=== PATIENT | male | born 1985 | race Caucasian/White ===

== ENCOUNTER 2016-08-27 21:10 | Emergency (ER) | payer MEDICAID, OTHER ==
--- NOTE | 2016-08-27 22:54 | ERNOTE ---
<PascualTroy hirsch - Last Filed: 08/28/16 07:51> Psychological HPI - General Chief Complaint: Psychiatric Problem Source: Reports: patient Exam Limitations: Reports: clinical condition - Immun/Allergies/Home Medications Allergies/Adverse Reactions: Allergies No Known Allergies Allergy (Verified 06/13/15 15:56) Home Medications: HOME MEDICATIONS Prazosin HCl [Minipress] 5 mg PO HS 12/28/14 [Last Taken Unknown] QUEtiapine FUMARATE [Seroquel] 25 mg PO PRN PRN 12/28/14 [Last Taken Unknown] QUEtiapine FUMARATE [Seroquel] 200 mg PO HS 12/28/14 [Last Taken Unknown] rOPINIRole HCL [Requip] 1 mg PO HS 12/28/14 [Last Taken Unknown] Sulfamethoxazole/Trimethoprim [Bactrim Ds] 1 tab PO BID #28 tab 06/13/15 [Last Taken Unknown] - History of Present Illness Narrative: Pt brought in by law enforcement with court committal for psychiatric issues. court committal states that the patient has not been taking his medications and is getting increasingly delusional and displaying erratic behavior. patient states that his mom is worried that he is too restorationism. His mom did use hyper religiosity as a reason for committal. Time Seen by Provider: 08/27/16 22:44 Arrived by: Reports: police Onset/duration: Reports: gradual onset Intent: Reports: other Situational Problems: Reports: parents Associated Symptoms: Reports: hallucinating - auditory Review of Systems - Review of Systems Constitutional: Absent: recent illness EYE: Present: no symptoms reported ENT: Present: no symptoms reported Respiratory: Present: no symptoms reported Cardiology: Present: no symptoms reported Psych: Present: See HPI - Patient's Past Medical History Patient History - Medical: No pertinent hx Patient History - Cardiac/Respiratory: No pertinent hx Patient History - Cancer: No Hx of Cancer Patient History - Surgical Procedures: No surgical history Patient History - Other: None - Social History Living Situations: home Psych History: Hx of Psychiatric Tx - Immunizations Immunizations Up to Date: Yes Physical Exam - Physical Exam General Appearance: Present: wd/wn, alert, no apparent distress, other Eye Exam: Normal inspection: bilateral Ears, Nose, Throat: Present: normal ENT inspection Neck: Present: normal inspection, nontender Respiratory: Present: no respiratory distress, normal breath sounds, lungs clear Cardiovascular/Chest: Present: regular rate, rhythm, no murmur Gastrointestinal/Abdominal: Present: normal bowel sounds Rectal Exam: Present: nontender Back Exam: Present: normal inspection, normal range of motion Neurological Exam: Present: alert, oriented, normal mood/affect, other - dystonic movements Skin Exam: Present: normal color, warm/dry ED Progress - Results and Orders Patient's Lab Results:: I have reviewed the patient's lab results. Results and Orders: Laboratory Tests 08/27/16 08/27/16 08/28/16 23:11 23:11 01:37 WBC 9.9 Hgb 15.9 Hct 46.8 Plt Count 254 Sodium 139 Potassium 4.6 Chloride 100 Carbon Dioxide 32.5 Anion Gap 11.1 BUN 21 Creatinine 0.98 Random Glucose 90 Calcium 9.6 Total Bilirubin 0.6 AST 27 ALT 41 Alkaline Phosphatase 83 Total Protein 7.9 Albumin 4.4 TSH 8.060 H Urine Color Yellow Urine Appearance Slightly cloudy Urine pH 6.0 Ur Specific [place] >=1.030 Urine Protein Negative Urine Glucose (UA) Negative Urine Ketones Negative Urine Blood Negative Urine Nitrate Negative Urine Bilirubin Negative Urine Urobilinogen Normal Ur Leukocyte Esterase Negative Urine RBC 0-5 Urine WBC 0-5 Ur Epithelial Cells 10-25 H Amorphous Sediment Many - 3+ H Urine Bacteria None seen Urine Mucus Few - 1+ H Urine Culture Comments No culture indicated Salicylates Less than 2.8 L Urine Opiates Screen Acetaminophen Less than 0.2 L Barbiturate Screen Ur Phencyclidine Scrn Urine Amphetamine U Benzodiazepines Scrn Urine Cocaine Screen Urine Marijuana (THC) Ethyl Alcohol Less than 3.0 08/28/16 01:37 WBC Hgb Hct Plt Count Sodium Potassium Chloride Carbon Dioxide Anion Gap BUN Creatinine Random Glucose Calcium Total Bilirubin AST ALT Alkaline Phosphatase Total Protein Albumin TSH Urine Color Urine Appearance Urine pH Ur Specific [place] Urine Protein Urine Glucose (UA) Urine Ketones Urine Blood Urine Nitrate Urine Bilirubin Urine Urobilinogen Ur Leukocyte Esterase Urine RBC Urine WBC Ur Epithelial Cells Amorphous Sediment Urine Bacteria Urine Mucus Urine Culture Comments Salicylates Urine Opiates Screen Negative Acetaminophen Barbiturate Screen Negative Ur Phencyclidine Scrn Negative Urine Amphetamine Positive H U Benzodiazepines Scrn Negative Urine Cocaine Screen Negative Urine Marijuana (THC) Negative Ethyl Alcohol - Vital Signs Patient's Vital Signs:: I have reviewed the patient's vital signs. Vital Signs: Vital Signs 08/27/16 22:27 Temperature 36.6 C Pulse Rate 90 Respiratory 18 Rate Blood Pressure 127/70 O2 Sat by Pulse 100 Oximetry - Progress/Reassessment Chief Complaint: Psychiatric Problem - Transfer of Care Physician Sign Out: Troy Maldonado Receiving Physician: Janak Sanchez - awaiting placement Expected Disposition: Transfer Departure Clinical Impression: Auditory hallucination Schizophrenia Qualifiers: Schizophrenia type: unspecified Qualified Code(s): F20.9 - Schizophrenia, unspecified - Departure Disposition: Transferred to other hospital Condition: Fair Instructions: Schizophrenia <Janak Sanchez - Last Filed: 08/28/16 12:49> Psychological HPI - Date Date of Service: 08/28/16 ED Progress - Results and Orders Patient's Lab Results:: I have reviewed the patient's lab results. - Vital Signs Vital Signs: Vital Signs 08/28/16 02:10 Temperature 35.0 C L Pulse Rate 62 Respiratory 14 Rate Blood Pressure 127/68 O2 Sat by Pulse 100 Oximetry - Transfer of Care Expected Disposition: Transfer - pt levon commited with his of schizophrenia and not taking meds, reporting hallucinations and restorationism delusions . Labs positive for amphetamines and chronically elevated tsh. Still awaiting transfer. Was court committed to Selene Das in 2013. Plan - Plan Plan: WE HAVE ARRANGED FOR PT. TO BE TRANSFERRED TO [facility] IN [place] WHERE HE HAS BEEN ACCEPTED BY DR. RODRIGUES.
--- OUTSIDE RECORDS SUMMARY | 2016-08-27 22:58 | XMS REPORT | Continuity of Care Document ---
:1985 Author Organization [facility] ([facility]) Address [address] [place] [address] Phone [phone] Care Team Providers Name Role Phone Provider, No-Primary Care Primary Care Provider Unavailable Source Comments This disclosure is being made pursuant to the Care Everywhere program, applicable federal and state laws, and may not contain all informaitonavailable regarding this patient.[facility] ([facility]) Active Allergies and Adverse Reactions Not on File Current Medications Not on file Active Problems Not on file Social History Tobacco Use Types Packs/Day Years Used Date Never Assessed Plan of Care Health Maintenance Due Date Last Done Comments Hepatitis B Vaccine (1 of 3 - Primary Series) 1985 Tdap Vaccine 08/22/1994 Lipid Disorder Screening 08/22/2001 MMR Vaccine 08/22/2001 Td Vaccine 08/22/2001 Varicella Vaccine (1 of 2 - Adult - No Evidence of 08/22/2001 Immunity) Influenza Vaccine: Seasonal (#1) 11/19/2015 Results from Last 3 Months Not on file
[2016-08-27 23:24] LABS: Hematocrit 46.8 % (42.0-52.0); Hemoglobin 15.9 gm/dL (13.5-18.0); Mean Cell Volume 91.8 fl (78-100); Mean Corpuscular Hemoglobin 31.2 pg (27-31); Mean Platelet Volume 8.8 fl (6.0-9.5); Neutrophil # 7.1 K/mm3 (1.3-6.0); Neutrophil % 71.5 % (42-75.0); Platelet Count 254 K/mm3 (150-450); Red Cell Distribution Width 12.6 % (11.5-14.0); White Blood Count 9.9 K/mm3 (4.0-10.5)
[2016-08-27 23:55] LABS: ALT 41 U/L (19-67); AST 27 U/L (0-48); Albumin * 4.4 gm/dl (3.4-5.0); Alkaline Phosphatase * 83 U/L (50-170); Anion Gap 11.1 mmol/L (6.8-13.8); BUN/Creatinine Ratio 21.4 (9.0-21.6); Bilirubin, Total 0.6 mg/dL (0.0-1.1); Blood Urea Nitrogen 21 mg/dL (6-23); Calcium * 9.6 mg/dL (7.9-10.9); Carbon Dioxide 32.5 mmol/L (24-32.6); Chloride 100 mmol/L (97-106); Glucose * 90 mg/dL (70-110); Potassium 4.6 mmol/L (3.4-4.6); Salicylate Less than 2.8 mg/dL (2.8-20.0); Sodium 139 mmol/L (132-142); Total Protein 7.9 gm/dL (6.2-8.2)
[2016-08-28 01:47] LABS: Urine Bilirubin Negative (NEGATIVE); Urine Blood Negative /ul (NEGATIVE); Urine Ketone Negative (NEGATIVE); Urine Nitrite Negative (NEGATIVE); Urine Protein Negative (NEGATIVE); Urine Specific Gravity >=1.030 SP.GR. (1.005-1.030); Urine Urobilinogen Normal (NORMAL)
[2016-08-28 01:51] LABS: Urine Amorphous Sediment Many - 3+ (NONE-FEW); Urine Appearance Slightly Cloudy; Urine Bacteria None Seen; Urine Color Yellow; Urine Mucus Few - 1+; Urine RBC 0-5 /hpf (0-5); Urine WBC 0-5 /hpf (0-5)
[2016-08-28 02:03] LABS: Cocaine Ur Negative (NEGATIVE); Urine Barbiturate Negative (NEGATIVE); Urine Benzodiazepines Negative (NEGATIVE); Urine Opiates Negative (NEGATIVE); Urine PCP Negative (NEGATIVE); Urine THC Negative (NEGATIVE)
[2016-08-28 15:30] VITALS: BP 130/84
== END 2016-08-28 15:18 | disposition short-term general hospital (02) ==
LOC: ER 21:10
DX: R44.0 Auditory hallucinations (principal); F20.9 Schizophrenia, unspecified
CPT/HCPCS: 36415; 80053; 80307; 81001; 84443; 85025; 99284; G0480; G0481

== ENCOUNTER 2016-12-01 14:36 | Emergency (ER) | payer OTHER ==
[2016-12-01] MEDS ORDERED: LORazepam 1 MG TABLET PO ONE (16:13)
[2016-12-01] MEDS ORDERED: LORazepam 1 MG TABLET ONE (16:21)
--- NOTE | 2016-12-01 16:26 | ERNOTE ---
Psychological HPI - General Chief Complaint: Psychiatric Problem Source: Reports: patient Exam Limitations: Reports: no limitations - Immun/Allergies/Home Medications Allergies/Adverse Reactions: Allergies No Known Allergies Allergy (Verified 12/01/16 14:46) Home Medications: HOME MEDICATIONS Prazosin HCl [Minipress] 5 mg PO HS 12/28/14 [Last Taken Unknown] QUEtiapine FUMARATE [Seroquel] 300 mg PO HS 12/28/14 [Last Taken Unknown] rOPINIRole HCL [Requip] 3 mg PO HS 12/28/14 [Last Taken Unknown] Benztropine Mesylate [Cogentin] 1 mg PO DAILY 12/01/16 [Last Taken Unknown] OLANZapine [Olanzapine] 20 mg PO DAILY 12/01/16 [Last Taken Unknown] - History of Present Illness Narrative: Patient states that he feels like bugs are crawling up underneath the skin. He admits to having schizophrenia however he has been taking his injections of an Invega with Danielle Sanchez on a regular basis. Time Seen by Provider: 12/01/16 15:58 Onset/duration: Reports: constant Prior Treament: Reports: similar symptoms before Review of Systems - Review of Systems Constitutional: Present: See HPI EYE: Present: no symptoms reported ENT: Present: no symptoms reported Respiratory: Present: no symptoms reported Cardiology: Present: no symptoms reported Gastrointestinal/Abdominal: Present: no symptoms reported Genitourinary: Present: no symptoms reported Musculoskeletal: Present: no symptoms reported Skin: Present: no symptoms reported Neurological: Present: no symptoms reported Endocrine: Present: no symptoms reported Hematologic/Lymphatic: Present: no symptoms reported Psych: Present: See HPI - Patient's Past Medical History Patient History - Medical: Other - Schizophrenia, Ataxia Patient History - Cardiac/Respiratory: No pertinent hx Patient History - Cancer: No Hx of Cancer Patient History - Surgical Procedures: No surgical history Patient History - Other: None - Social History Living Situations: home Psych History: Hx of Anxiety, Hx of Depression, Hx of Psychiatric Tx Smoking Status: Current every day smoker Alcohol Use: none Drug Use: none - Immunizations Immunizations Up to Date: No Hx Pneumococcal Vaccination: No History of Influenza Vaccine: No Physical Exam - Physical Exam General Appearance: Present: wd/wn, alert, no apparent distress Head Exam: Present: normal inspection, no evidence of injury Eye Exam: Normal inspection: bilateral, PERRL: bilateral Ears, Nose, Throat: Present: normal ENT inspection, H, normal pharynx Neck: Present: normal inspection, nontender Respiratory: Present: no respiratory distress, normal breath sounds, no accessory muscle use, chest nontender, lungs clear Cardiovascular/Chest: Present: regular rate, rhythm, no murmur, normal peripheral pulses Gastrointestinal/Abdominal: Present: normal bowel sounds, nontender, nondistended, soft, no organomegaly Rectal Exam: Present: deferred Back Exam: Present: normal inspection, normal range of motion Extremity Exam: Present: normal inspection, non-tender, no edema, normal range of motion Neurological Exam: Present: alert, oriented, other - flights of ideas Skin Exam: Present: normal color, warm/dry Lymphatic Exam: Present: no adenopathy ED Progress - Vital Signs Patient's Vital Signs:: I have reviewed the patient's vital signs. Vital Signs: Vital Signs 12/01/16 14:38 Temperature 36.6 C Pulse Rate 95 Respiratory 16 Rate Blood Pressure 143/62 O2 Sat by Pulse 97 Oximetry - Progress/Reassessment Chief Complaint: Psychiatric Problem Plan - Plan Plan: I discussed the case with Danielle Sanchez's office and it was recommended that we give Nate 1 mg of Ativan by mouth and 2 mg of Risperdal by mouth and he will call the office tomorrow for further medication adjustment. Departure Clinical Impression: Schizophrenia Qualifiers: Schizophrenia type: undifferentiated schizophrenia Qualified Code(s): F20.3 - Undifferentiated schizophrenia - Departure Disposition: Home self-care Condition: Good Instructions: Schizophrenia
[2016-12-01 16:29] VITALS: BP 138/64
[2016-12-01] MEDS ORDERED: risperiDONE 1 MG TABLET PO ONE (16:30)
== END 2016-12-01 16:27 | disposition home or self-care (01) ==
LOC: ER 14:36
DX: F20.3 Undifferentiated schizophrenia (principal); F17.200 Nicotine dependence, unspecified, uncomplicated

== ENCOUNTER 2016-12-04 05:50 | Emergency (ER) | payer OTHER ==
--- NOTE | 2016-12-04 06:19 | ERNOTE ---
Psychological HPI - General Chief Complaint: Psychiatric Problem Source: Reports: patient Exam Limitations: Reports: no limitations - Immun/Allergies/Home Medications Allergies/Adverse Reactions: Allergies No Known Allergies Allergy (Verified 12/01/16 14:46) Home Medications: HOME MEDICATIONS Prazosin HCl [Minipress] 5 mg PO HS 12/28/14 [Last Taken Unknown] QUEtiapine FUMARATE [Seroquel] 300 mg PO HS 12/28/14 [Last Taken Unknown] rOPINIRole HCL [Requip] 3 mg PO HS 12/28/14 [Last Taken Unknown] Benztropine Mesylate [Cogentin] 1 mg PO DAILY 12/01/16 [Last Taken Unknown] OLANZapine [Olanzapine] 20 mg PO DAILY 12/01/16 [Last Taken Unknown] - History of Present Illness Narrative: Pt acknowledges having auditory hallucinations and those have been consistent. He states that at this time he feels "spiders under my skin". He was in this ED 3 days ago with the same complaint. He states that the medicine he was given put him to sleep but didn't help the feeling go away. He is able to sleep through this feeling but it remains when he awakens. Time Seen by Provider: 12/04/16 06:10 Onset/duration: Reports: gradual onset Associated Symptoms: Reports: frustrated Prior Treament: Reports: recently seen, treated by physician Review of Systems - Review of Systems Constitutional: Absent: recent illness EYE: Absent: vision changes ENT: Present: no symptoms reported Respiratory: Present: no symptoms reported Cardiology: Present: no symptoms reported Gastrointestinal/Abdominal: Present: no symptoms reported Genitourinary: Present: no symptoms reported Musculoskeletal: Present: no symptoms reported Skin: Present: See HPI. Absent: rash, change in color Neurological: Absent: headache, dizziness/light-headedness Endocrine: Present: no symptoms reported Hematologic/Lymphatic: Present: no symptoms reported Psych: Present: See HPI - Patient's Past Medical History Patient History - Medical: Anxiety, Depression, Other Patient History - Cardiac/Respiratory: No pertinent hx Patient History - Cancer: No Hx of Cancer Patient History - Surgical Procedures: No surgical history Patient History - Other: None - Social History Living Situations: alone Psych History: Hx of Anxiety, Hx of Depression, Hx of Psychiatric Tx Smoking Status: Current every day smoker Have you smoked in the past 12 months: Yes Do you dip or chew tobacco: No Alcohol Use: none Drug Use: none - Immunizations Immunizations Up to Date: No - unsure Hx Pneumococcal Vaccination: No History of Influenza Vaccine: No Physical Exam - Physical Exam General Appearance: Present: wd/wn, alert, no apparent distress Head Exam: Present: normal inspection, no evidence of injury Eye Exam: Normal inspection: bilateral, PERRL: bilateral Neck: Present: normal inspection, nontender Respiratory: Present: no respiratory distress, no accessory muscle use Extremity Exam: Present: normal inspection, non-tender, normal range of motion Neurological Exam: Present: alert, oriented Skin Exam: Present: normal color, warm/dry. Absent: skin rash ED Progress - Vital Signs Vital Signs: Vital Signs 12/04/16 05:56 Temperature 36.8 C Pulse Rate 98 Respiratory 18 Rate Blood Pressure 130/90 O2 Sat by Pulse 98 Oximetry - Progress/Reassessment Chief Complaint: Psychiatric Problem Departure Clinical Impression: Tactile hallucination - Departure Disposition: Home Follow Up Needed Condition: Good Additional Instructions: See Danielle Sanchez for further medication adjustments. Referrals: Danielle Parker ARNP [Primary Care Provider] -
[2016-12-04] MEDS ORDERED: diphenhydrAMINE HCL 50 MG/ML VIAL IV ONE (06:25)
[2016-12-04] MEDS ORDERED: diphenhydrAMINE HCL 50 MG/ML VIAL ONE (06:54)
[2016-12-04 07:45] VITALS: BP 121/73
== END 2016-12-04 07:47 | disposition home or self-care (01) ==
LOC: ER 05:50
DX: R44.2 Other hallucinations (principal); F17.200 Nicotine dependence, unspecified, uncomplicated

== ENCOUNTER 2016-12-05 17:51 | Emergency (ER) | payer OTHER ==
[2016-12-05 18:00] VITALS: BP 129/78
--- NOTE | 2016-12-05 19:18 | ERNOTE ---
Psychological HPI - Date Date of Service: 12/05/16 - General Chief Complaint: Psychiatric Problem Source: Reports: patient, family - Immun/Allergies/Home Medications Allergies/Adverse Reactions: Allergies No Known Allergies Allergy (Verified 12/05/16 18:00) Home Medications: HOME MEDICATIONS Prazosin HCl [Minipress] 5 mg PO HS 12/28/14 [Last Taken Unknown] QUEtiapine FUMARATE [Seroquel] 300 mg PO HS 12/28/14 [Last Taken Unknown] rOPINIRole HCL [Requip] 3 mg PO HS 12/28/14 [Last Taken Unknown] Benztropine Mesylate [Cogentin] 1 mg PO DAILY 12/01/16 [Last Taken Unknown] OLANZapine [Olanzapine] 20 mg PO DAILY 12/01/16 [Last Taken Unknown] QUEtiapine FUMARATE [Seroquel Xr] 300 mg PO HS #7 tab.er.[id number] 12/05/16 [Last Taken Unknown] - History of Present Illness Narrative: This is a 31-year-old male with a known history of schizophrenia who comes to the emergency department requesting Seroquel. The patient says that over the last week he is started to see things including spiders which are "climbing through his retina". He specifically gets upset if I suggest that the spiders on his skin saying no they are definitely in his eyeball. The patient saw his primary care doctor yesterday and got a Depo injection of antipsychotic. He was also put on Flagyl. We are not certain why. The patient's mother came with her him today. She says that he is not able to function at work and would need a day off for until she is seen by the psychiatrist. She says she is going to be getting in contact with his primary doctor on Thursday to get him a continuation of the Seroquel. The patient has been on Seroquel in the past. This is usually corresponded to times when he has had a significant decompensation. He was not on Seroquel as of a week ago. I have discussed with them the possible side effects including EPS patient denies suicidal or homicidal ideation and admits freely to the hallucinations visual and auditory. Time Seen by Provider: 12/05/16 19:09 Review of Systems - Review of Systems Constitutional: Present: no symptoms reported EYE: Present: no symptoms reported ENT: Present: no symptoms reported Respiratory: Present: no symptoms reported Cardiology: Present: no symptoms reported Gastrointestinal/Abdominal: Present: no symptoms reported Genitourinary: Present: no symptoms reported Musculoskeletal: Present: no symptoms reported Skin: Present: no symptoms reported Neurological: Present: no symptoms reported Endocrine: Present: no symptoms reported Hematologic/Lymphatic: Present: no symptoms reported Psych: Present: See HPI, anxiety, emotional problems All Other Systems: All systems neg except as marked - Patient's Past Medical History Patient History - Medical: Anxiety, Depression, Other Patient History - Cardiac/Respiratory: No pertinent hx Patient History - Cancer: No Hx of Cancer Patient History - Surgical Procedures: No surgical history Patient History - Other: None - Social History Living Situations: home Psych History: Hx of Anxiety, Hx of Depression, Hx of Psychiatric Tx Alcohol Use: none Drug Use: none - Immunizations Immunizations Up to Date: No - unsure Hx Pneumococcal Vaccination: No History of Influenza Vaccine: No Physical Exam - Physical Exam General Appearance: Present: wd/wn, alert, no apparent distress, other - patient makes no eye contact. When he speaks he is very focused on the spiders that he sees. His speech is not goal-directed. Somewhat rambling. [place] is normal. Head Exam: Present: normal inspection, no evidence of injury Eye Exam: Normal inspection: bilateral, PERRL: bilateral, EOMI: bilateral Ears, Nose, Throat: Present: normal ENT inspection, normal pharynx Neck: Present: normal inspection, nontender Respiratory: Present: no respiratory distress, normal breath sounds, no accessory muscle use, lungs clear Cardiovascular/Chest: Present: regular rate, rhythm, no murmur, normal peripheral pulses Gastrointestinal/Abdominal: Present: normal bowel sounds, nontender, nondistended, soft Back Exam: Present: normal inspection, normal range of motion, no CVA tenderness , no vertebral tenderness Extremity Exam: Present: normal inspection Neurological Exam: Present: alert, oriented, no motor/sensory deficits, other - patient has a bizarre affect. Disturbed thought process. Consistent with schizophrenia. Denies suicidal or homicidal ideation. ED Progress - Vital Signs Patient's Vital Signs:: I have reviewed the patient's vital signs. Vital Signs: Vital Signs 12/05/16 12/05/16 17:52 17:57 Temperature 36.7 C 36.4 C L Pulse Rate 96 Respiratory 12 Rate Blood Pressure 110/81 129/78 O2 Sat by Pulse 98 Oximetry - Progress/Reassessment Chief Complaint: Psychiatric Problem Plan - Plan Plan: I'm going to proceed to the patient's mother's request for Seroquel X are 300 mg at bedtime. I am going to give him a dose here and write him a prescription for 7 days worth. She understands that she needs to get him in to see his doctor to get this continued. If he develops extrapyramidal side effects which have discussed with her she will return to the ER. She is aware that the Depo injection may take a few more days to kick in. I agree with her that this patient needs medication as he appears to be in true psychiatric distress. Departure Clinical Impression: Schizophrenia - Departure Disposition: Home self-care Condition: Stable Instructions: Schizophrenia Additional Instructions: As we discussed, her long-term psychiatric management needs to be 3 her psychiatrist and family doctor. He received a Depo injection of an antipsychotic yesterday. This may take several more days to kick in. I agree that getting some Seroquel especially at nighttime would be helpful for you. I have given a 7 day's worth of this medicine. Take it only at night. Cardiac family doctor and set up a follow-up appointment [facility] psychiatrist and set up follow-up appointment He must return to the emergency department immediately if he develops abnormal movements of her mouth, you become suicidal or homicidal, or if he develop any new worrisome symptoms. Continue taking all of her previous medicines as prescribed. Referrals: Kanwal Parker FNP [Primary Care Provider] - Prescriptions: QUEtiapine FUMARATE [Seroquel Xr] 300 mg PO HS #7 tab.er.24h
[2016-12-05] MEDS ORDERED: QUEtiapine FUMARATE 100 MG TABLET PO SCH (19:30)
== END 2016-12-05 19:48 | disposition home or self-care (01) ==
LOC: ER 17:51
DX: F20.9 Schizophrenia, unspecified (principal); F41.8 Other specified anxiety disorders

== ENCOUNTER 2017-01-10 21:03 | Emergency (ER) | payer OTHER ==
[2017-01-10 21:21] VITALS: BP 139/83
--- NOTE | 2017-01-10 22:06 | ERNOTE ---
ENT HPI Date of Service: 01/10/17 Presenting Symptoms: other - feels like insects are crawling in his eyes Time Seen by Provider: 01/10/17 21:23 Source: patient - Immun/Allergies/Home Medications Immunizations: IMMUNIZATION HX Immunizations Up to Date Yes History of Influenza Vaccine No Hx Pneumococcal Vaccination No Allergies/Adverse Reactions: Allergies Allergy/AdvReac Type Severity Reaction Status Date / Time No Known Allergies Allergy Verified 12/05/16 18:00 Home Medications: HOME MEDICATIONS Prazosin HCl [Minipress] 5 mg PO HS 12/28/14 [Last Taken Unknown] QUEtiapine FUMARATE [Seroquel] 300 mg PO HS 12/28/14 [Last Taken Unknown] rOPINIRole HCL [Requip] 3 mg PO HS 12/28/14 [Last Taken Unknown] Benztropine Mesylate [Cogentin] 1 mg PO DAILY 12/01/16 [Last Taken Unknown] OLANZapine [Olanzapine] 20 mg PO DAILY 12/01/16 [Last Taken Unknown] QUEtiapine FUMARATE [Seroquel Xr] 300 mg PO HS #7 tab.er.24h 12/05/16 [Last Taken Unknown] - History of Present Illness Narrative: 31 year old that has been feeling like there were insects crawling inside his body for one week. Tonight he would like his eyes check because the thinks that the insects are in his eyes. No complaints of eye pain or injury. Denies any pain. Admits to smoking cannabis last week. PMH: schizophrenia, hallucinations, insect bites. Date (Duration): 01/10/17 Time (Timing): 21:49 Severity: Present: mild ENT Location: Present: eye (L) Modifying Factors - Improves: Reports: nothing Modifying Factors - Worsens: Reports: nothing Review of Systems - Review of Systems Constitutional: Present: no symptoms reported EYE: Present: see HPI ENT: Present: no symptoms reported Respiratory: Present: no symptoms reported Cardiology: Present: no symptoms reported Gastrointestinal/Abdominal: Present: no symptoms reported Genitourinary: Present: no symptoms reported Musculoskeletal: Present: no symptoms reported Skin: Present: no symptoms reported Neurological: Present: no symptoms reported Endocrine: Present: no symptoms reported Hematologic/Lymphatic: Present: no symptoms reported Psych: Present: no symptoms reported - Patient's Past Medical History Patient History - Medical: Anxiety, Depression, Other Patient History - Cardiac/Respiratory: No pertinent hx Patient History - Cancer: No Hx of Cancer Patient History - Surgical Procedures: No surgical history Patient History - Other: None - Social History Living Situations: home Psych History: Hx of Anxiety, Hx of Depression, Hx of Psychiatric Tx Smoking Status: Current every day smoker Patient requests Smoking Cessation Consult: No Initiate information on Smoking Cessation: No Alcohol Use: none Drug Use: none - Immunizations Immunizations Up to Date: Yes Hx Pneumococcal Vaccination: No History of Influenza Vaccine: No Physical Exam - Physical Exam General Appearance: Present: no apparent distress Head Exam: Present: normal inspection Eye Exam: Normal inspection: bilateral, PERRL: bilateral, EOMI: bilateral Ears, Nose, Throat: Present: normal ENT inspection Neck: Present: normal inspection Respiratory: Present: no respiratory distress Cardiovascular/Chest: Present: regular rate, rhythm Gastrointestinal/Abdominal: Present: nondistended Back Exam: Present: normal inspection Extremity Exam: Present: normal inspection Neurological Exam: Present: alert, oriented, other - spasticity ED Progress - Vital Signs Vital Signs: Vital Signs 01/10/17 21:17 Temperature 36.2 C L Pulse Rate 103 H Respiratory 20 Rate Blood Pressure 139/83 O2 Sat by Pulse 97 Oximetry - Progress/Reassessment Chief Complaint: Eye Injury/Trauma Progress Note-Subjective: 01/10/17 21:40 The patient eloped prior to being discharged. Departure Clinical Impression: Schizophrenia - Departure Disposition: Home self-care Condition: Fair Instructions: Schizophrenia Print Language: Argentine Additional Instructions: Return to the ED if you feel unsafe.
== END 2017-01-10 21:30 | disposition left against medical advice (07) ==
LOC: ER 21:03
DX: F20.9 Schizophrenia, unspecified (principal); F17.200 Nicotine dependence, unspecified, uncomplicated

== ENCOUNTER 2017-01-11 10:54 | Emergency (ER) | payer OTHER ==
[2017-01-11 11:08] VITALS: BP 126/81
--- NOTE | 2017-01-11 11:50 | ERNOTE ---
Psychological HPI - Date Date of Service: 01/11/17 - General Chief Complaint: Psychiatric Problem Source: Reports: patient, family - mother Exam Limitations: Reports: clinical condition - Immun/Allergies/Home Medications Allergies/Adverse Reactions: Allergies No Known Allergies Allergy (Verified 01/11/17 11:08) Home Medications: HOME MEDICATIONS QUEtiapine FUMARATE [Seroquel] 300 mg PO HS 12/28/14 [Last Taken Unknown] rOPINIRole HCL [Requip] 3 mg PO HS 12/28/14 [Last Taken Unknown] Amox Tr/Potassium Clavulanate [Augmentin 875-125 Tablet] 875 mg PO Q12H #20 tab 01/11/17 [Last Taken Unknown] Benztropine Mesylate 1 mg PO BID 01/11/17 [Last Taken Unknown] OLANZapine [Olanzapine] 10 mg PO DAILY 01/11/17 [Last Taken Unknown] OLANZapine [Zyprexa] 20 mg PO DAILY 01/11/17 [Last Taken Unknown] Prazosin HCl [Minipress] 5 mg PO HS 01/11/17 [Last Taken Unknown] QUEtiapine FUMARATE [Seroquel] 300 mg PO DAILY #20 tablet 01/11/17 [Last Taken Unknown] - History of Present Illness Narrative: Pt with schizophrenia presents with hallucination of bugs crawling throughout his body and eating his brain. He is requesting a repeat prescription of flagyl ; he has refused to take the benzotropine that was prescribed to him 3 days ago. He is convinced that it is not the right drug. pt is requesting a Ct head Time Seen by Provider: 01/11/17 11:50 Date (Duration): 11/19/15 Arrived by: Reports: private car Onset/duration: Reports: gradual onset, intermittent Intent: Denies: suicide Mechanism: Denies: overdose Situational Problems: Denies: spouse Associated Symptoms: Reports: frustrated Prior Treament: Reports: recently seen, treated by physician Review of Systems - Review of Systems Constitutional: Present: no symptoms reported EYE: Present: no symptoms reported ENT: Present: no symptoms reported Respiratory: Present: no symptoms reported Cardiology: Present: no symptoms reported Gastrointestinal/Abdominal: Present: no symptoms reported Genitourinary: Present: no symptoms reported Musculoskeletal: Present: no symptoms reported Skin: Present: no symptoms reported Neurological: Present: anxiety, emotional problems, other - Pt is convinced of bugs crawling in ears, abdomen and head Endocrine: Present: no symptoms reported Hematologic/Lymphatic: Present: no symptoms reported Psych: Present: no symptoms reported All Other Systems: All systems neg except as marked - Patient's Past Medical History Patient History - Medical: Anxiety, Depression, Other Patient History - Cardiac/Respiratory: No pertinent hx Patient History - Cancer: No Hx of Cancer Patient History - Surgical Procedures: No surgical history Patient History - Other: None - Social History Living Situations: home Psych History: Hx of Anxiety, Hx of Depression, Hx of Psychiatric Tx Smoking Status: Current every day smoker Have you smoked in the past 12 months: Yes Alcohol Use: none Drug Use: none - Immunizations Immunizations Up to Date: Yes Hx Pneumococcal Vaccination: No History of Influenza Vaccine: No Psychological Exam - Exam General Appearance: Present: alert Head Exam: Present: normal inspection Neurological: Present: alert Thoughts/Hallucinations: Present: tactile hallucinations Behavior/Eye Contact/Speech: Present: cooperative Eye Exam: Normal inspection: bilateral Ears, Nose, Throat: Present: normal ENT inspection Neck: Present: normal inspection Respiratory: Present: no respiratory distress Cardiovascular/Chest: Present: regular rate, rhythm Gastrointestinal/Abdominal: Present: normal bowel sounds Back Exam: Present: normal inspection Extremity Exam: Present: normal inspection Skin Exam: Present: normal color Lymphatic Exam: Present: no adenopathy ED Progress - Vital Signs Vital Signs: Vital Signs 01/11/17 11:05 Temperature 36.8 C Pulse Rate 116 H Respiratory 12 Rate Blood Pressure 126/81 O2 Sat by Pulse 93 Oximetry - EKG EKG: NSR, RBBB - Progress/Reassessment Chief Complaint: Psychiatric Problem Departure Clinical Impression: Tactile hallucination, Psychogenic formication, Sinusitis - Departure Disposition: Home self-care Condition: Good Referrals: Danielle Parker ARNP [Primary Care Provider] - Prescriptions: Amox Tr/Potassium Clavulanate [Augmentin 875-125 Tablet] 875 mg PO Q12H #20 tab QUEtiapine FUMARATE [Seroquel] 300 mg PO DAILY #20 tablet
--- NOTE | 2017-01-11 17:24 | PN ---
Objective - Vitals Vitals: Last Vital Signs Temp 36.8 C 01/11/17 13:21 Pulse 116 H 01/11/17 13:21 Resp 12 01/11/17 13:21 BP 126/81 01/11/17 13:21 Pulse Ox 93 01/11/17 13:21 - EKG/Xray Findings XRAY: CT head is negative Interpretation: Reviewed by me - Exam Constitutional: Present: Alert, Well developed, Well nourished
== END 2017-01-11 13:21 | disposition home or self-care (01) ==
LOC: ER 10:54
DX: R44.2 Other hallucinations (principal); F45.8 Other somatoform disorders; J32.9 Chronic sinusitis, unspecified; F20.9 Schizophrenia, unspecified; F17.200 Nicotine dependence, unspecified, uncomplicated

== ENCOUNTER 2017-01-13 09:54 | Emergency (ER) | payer OTHER ==
[2017-01-13 10:36] LABS: Hematocrit 41.1 % (42.0-52.0); Hemoglobin 14.1 gm/dL (13.5-18.0); Mean Cell Volume 91.1 fl (78-100); Mean Corpuscular Hemoglobin 31.3 pg (27-31); Mean Corpuscular Hgb Conc 34.3 g/dl (32-36); Mean Platelet Volume 9.1 fl (6.0-9.5); Neutrophil # 3.1 K/mm3 (1.3-6.0); Neutrophil % 52.8 % (42-75.0); Platelet Count 200 K/mm3 (150-450); Red Blood Count 4.51 M/mm3 (4.7-6.0); Red Cell Distribution Width 12.5 % (11.5-14.0); White Blood Count 5.9 K/mm3 (4.0-10.5)
--- NOTE | 2017-01-13 10:56 | ERNOTE ---
<José Miguel Madriden - Last Filed: 01/13/17 19:40> Psychological HPI - Date Date of Service: 01/13/17 - General Chief Complaint: Psychiatric Problem Source: Reports: patient, other - committal papers. Exam Limitations: Reports: no limitations - Immun/Allergies/Home Medications Allergies/Adverse Reactions: Allergies No Known Allergies Allergy (Verified 01/13/17 10:19) Home Medications: HOME MEDICATIONS QUEtiapine FUMARATE [Seroquel] 300 mg PO HS 12/28/14 [Last Taken Unknown] rOPINIRole HCL [Requip] 3 mg PO HS 12/28/14 [Last Taken Unknown] Amox Tr/Potassium Clavulanate [Augmentin 875-125 Tablet] 875 mg PO Q12H #20 tab 01/11/17 [Last Taken Unknown] Benztropine Mesylate 1 mg PO BID 01/11/17 [Last Taken Unknown] OLANZapine [Olanzapine] 10 mg PO DAILY 01/11/17 [Last Taken Unknown] OLANZapine [Zyprexa] 20 mg PO DAILY 01/11/17 [Last Taken Unknown] Prazosin HCl [Minipress] 5 mg PO HS 01/11/17 [Last Taken Unknown] QUEtiapine FUMARATE [Seroquel] 300 mg PO DAILY #20 tablet 01/11/17 [Last Taken Unknown] - History of Present Illness Narrative: Patient presents to the ED under committal papers. He was noted to be having suicidal thoughts. Not being compliant and not functioning well. He is here with committal papers. he denies complaints at this time. No physical complaints. He states that he had only been taking his Invega. He denies SI at this time. No CP or SOB. He denies any pain. He denies overdose. Time Seen by Provider: 01/13/17 10:40 Arrived by: Reports: police Onset/duration: Reports: gradual onset Intent: Reports: prior thoughts of suicide Associated Symptoms: Reports: suicidal thoughts Prior Treament: Denies: recently seen Review of Systems - Review of Systems Constitutional: Absent: fever Respiratory: Absent: shortness of breath Cardiology: Absent: chest pain Gastrointestinal/Abdominal: Absent: abdominal pain Genitourinary: Absent: dysuria Neurological: Absent: weakness All Other Systems: All systems neg except as marked - Patient's Past Medical History Patient History - Medical: Anxiety, Depression, Other Patient History - Cardiac/Respiratory: No pertinent hx Patient History - Cancer: No Hx of Cancer Patient History - Surgical Procedures: No surgical history Patient History - Other: None - Social History Living Situations: home Psych History: Hx of Anxiety, Hx of Depression, Hx of Psychiatric Tx Alcohol Use: none Drug Use: none - Immunizations Immunizations Up to Date: Yes Hx Pneumococcal Vaccination: No History of Influenza Vaccine: No Psychological Exam - Exam General Appearance: Present: alert, no apparent distress Head Exam: Present: normal inspection, no evidence of injury Neurological: Present: alert, calm, steamer blocker II-XII nml as tested, other - no focal weakness Thoughts/Hallucinations: Present: delusions Behavior/Eye Contact/Speech: Present: cooperative Eye Exam: Normal inspection: bilateral, PERRL: bilateral Ears, Nose, Throat: Present: normal ENT inspection Neck: Present: normal inspection Respiratory: Present: no respiratory distress, no accessory muscle use, lungs clear Cardiovascular/Chest: Present: regular rate, rhythm Gastrointestinal/Abdominal: Present: normal bowel sounds, nontender, soft. Absent: tenderness Back Exam: Present: normal range of motion Extremity Exam: Present: normal inspection Skin Exam: Present: normal color, warm/dry ED Progress - Results and Orders Patient's Lab Results:: I have reviewed the patient's lab results. - Vital Signs Patient's Vital Signs:: I have reviewed the patient's vital signs. Vital Signs: Vital Signs 01/13/17 10:15 Temperature 36.7 C Pulse Rate 79 Respiratory 12 Rate Blood Pressure 150/79 O2 Sat by Pulse 100 Oximetry - Progress/Reassessment Chief Complaint: Psychiatric Problem Progress Note-Subjective: 01/13/17 19:40 Awaiting psych placement under his committal/. - Transfer of Care Physician Sign Out: Toni Madrid Receiving Physician: Troy Maldonado Expected Disposition: Transfer Departure Clinical Impression: Suicidal thoughts, Noncompliance with medication regimen, Psychiatric illness - Departure Disposition: Other health care facility Condition: Stable <Troy Maldonado - Last Filed: 01/14/17 05:35> ED Progress - Progress/Reassessment Progress Note-Subjective: 01/14/17 05:34 Pt sleeping. continue to await psych placement.
[2017-01-13 10:59] LABS: ALT 18 U/L (19-67); AST 14 U/L (0-48); Albumin * 3.6 gm/dl (3.4-5.0); Alkaline Phosphatase * 84 U/L (50-170); Anion Gap 9.6 mmol/L (6.8-13.8); Bilirubin, Total 0.2 mg/dL (0.0-1.1); Blood Urea Nitrogen 26 mg/dL (6-23); Ca. Corrected For Albumin 8.6 mg/dL (8.4-10.2); Calcium * 8.6 mg/dL (7.9-10.9); Carbon Dioxide 30.4 mmol/L (24-32.6); Chloride 105 mmol/L (97-106); Glucose * 97 mg/dL (70-110); Salicylate Less than 2.8 mg/dL (2.8-20.0); Sodium 141 mmol/L (132-142); TSH * 3.393 uIU/mL (0.358-3.74); Total Protein 7.3 gm/dL (6.2-8.2)
[2017-01-13 16:05] LABS: Urine Bilirubin Negative (NEGATIVE); Urine Blood Negative /ul (NEGATIVE); Urine Ketone Negative (NEGATIVE); Urine Nitrite Negative (NEGATIVE); Urine Protein Negative (NEGATIVE); Urine Specific Gravity 1.025 SP.GR. (1.005-1.030); Urine Urobilinogen Normal (NORMAL)
[2017-01-13 16:12] LABS: Urine Appearance Clear; Urine Bacteria None Seen; Urine Color Dark Yellow; Urine RBC None Seen /hpf (0-5); Urine WBC 0-5 /hpf (0-5)
[2017-01-13 16:18] LABS: Cocaine Ur Negative (NEGATIVE); Urine Barbiturate Negative (NEGATIVE); Urine Benzodiazepines Negative (NEGATIVE); Urine Opiates Negative (NEGATIVE); Urine PCP Negative (NEGATIVE); Urine THC Negative (NEGATIVE)
[2017-01-14 13:12] VITALS: BP 120/72
== END 2017-01-14 15:20 | disposition short-term general hospital (02) ==
LOC: ER 09:54
DX: F41.9 Anxiety disorder, unspecified (principal); F32.9 Major depressive disorder, single episode, unspecified; R45.851 Suicidal ideations; Z91.14 Patient's other noncompliance with medication regimen; Z65.3 Problems related to other legal circumstances
CPT/HCPCS: 36415; 80053; 80307; 81001; 84443; 85025; 99285; G0480; G0481